=== PATIENT | female | born 1960 | race Caucasian/White ===

== ENCOUNTER 2022-09-02 13:53 | Emergency (ER) | payer MEDICARE, MEDICAID ==
[2022-09-02] MEDS: Oxymetazoline 0.05% Nasal Spray 30 ML Bottle NAS ONE (14:10)
== END 2022-09-02 14:45 | disposition home or self-care (01) ==
LOC: VM.ED 13:53
DX: R04.0 Epistaxis (principal); Z88.8 Allergy status to other drugs, medicaments and biological substances
CPT/HCPCS: 30901; 99283; A9270-GY